=== PATIENT | male | born 1975 | race Caucasian/White ===

== ENCOUNTER 2019-02-23 07:40 | Day surgery (SDC) | payer BC ==
[2019-02-22 13:28] VITALS: BMI 31.5
[2019-02-23] MEDS ORDERED: LIDOCAINE HCL 1%, 10 MG/ML (20ML VIAL) ONE (09:03)
[2019-02-23] MEDS ORDERED: PROPOFOL 20 ML ONE ×2 (09:25)
[2019-02-23] MEDS ORDERED: fentaNYL CITRATE 250 MCG/5 ML VIAL ONE (09:25)
[2019-02-23] MEDS ORDERED: MIDAZOLAM HCL 2 MG/2 ML SINGLE DOSE VIAL ONE ×2 (09:26)
[2019-02-23] MEDS ORDERED: LIDOCAINE HCL/PF 2% SDV 5ML VIAL ONE (09:37)
[2019-02-23] MEDS ORDERED: ceFAZolin SODIUM 1 GM VIAL IVPB ONE (09:41)
[2019-02-23] MEDS ORDERED: ceFAZolin SODIUM 1 GM VIAL ONE (09:50)
[2019-02-23] MEDS ORDERED: LIDOCAINE HCL 1%, 10 MG/ML (20ML VIAL) INF ONE (10:26)
[2019-02-23] MEDS ORDERED: BUPIVACAINE HCL/PF 2.5 MG/ML - 30 ML VIAL IJ ONE (10:26)
[2019-02-23] MEDS ORDERED: BACITRACIN 50,000 UNITS VIAL TP ONE (10:26)
[2019-02-23] MEDS ORDERED: BUPIVACAINE HCL/PF 0.25% (2.5MG/ML) 10 ML VIAL ONE (10:30)
--- NOTE | 2019-02-23 10:58 | OP ---
Operative Note - Note: Operative Date: 02/23/19 Pre-Operative Diagnosis: atrophic rt. testis Operation: rt. testicular prosthesis Implants: rt. testes prosthesis Post-Operative Diagnosis: Same as Pre-op Surgeon: Aimee Calloway Anesthesia: General Specimens Removed: none Estimated Blood Loss (mls): 10 Drains, Volume Out (mls): 0 Blood Volume Replaced (mls): 0 Fluid Volume Replaced (mls): 0 Operative Report Dictated: Yes
[2019-02-23] MEDS ORDERED: ONDANSETRON 4 MG/2 ML VIAL IVPUSH PRN (11:15)
[2019-02-23] MEDS ORDERED: LACTATED RINGERS SOLUTION 1,000 ML IV SCH (11:15)
[2019-02-23] MEDS ORDERED: ONDANSETRON 4 MG/2 ML VIAL IVPUSH ONE (11:50)
[2019-02-23] MEDS ORDERED: ONDANSETRON 4 MG/2 ML VIAL ONE (11:51)
--- NOTE | 2019-02-23 11:51 | CONS ---
DATE OF CONSULTATION: DATE OF DICTATION: 02/23/2019 HISTORY: A 43-year-old male admitted for placement of a right testicular prosthesis. The patient has undergone bilateral inguinal hernia repairs in the past. He states that his right testicle has been diminishing in size. At present, he no longer feels a right testicle in the scrotum. Patient was advised to undergo an orchiectomy with placement of testicular prosthesis but patient adamantly refused. Possibility of carcinoma of the penis was explained fully and in detail to the patient. Again, the patient refused to have his right atrophic testicle removed. He does have history of high blood pressure. Also was diagnosed with a mild pancytopenia and hypertrophic cardiomyopathy. He is status post catheterization at [place] in 2005. He does have mild bilateral gynecomastia. He also underwent atrial fibrillation, ablation in June 2018. He had a ruptured right triceps tendon, which was surgically repaired. The patient denies any erectile dysfunction. He is and, by choice, has no children. MEDICATIONS: He is on metoprolol, Maxitrol, Suboxone, and Viagra. ALLERGIES: He states he is allergic to PENICILLIN. PHYSICAL EXAMINATION: General: Reveals a well-developed, adult male in no apparent distress. Abdomen: Soft. No CVA tenderness. Genitourinary: Groin reveals a normal, adult, circumcised male penis. Testes reveal a normal left testicle. Right testicle is not palpated. No hernias or hydroceles are elicited. Perineum has good sensation. Rectal: Revealed a 1+, nontender prostate. Extremities: Reveal full range of motion with no clubbing, cyanosis, or edema. IMPRESSION: At present is atrophic right testicle. PLAN: Right inguinal exploration and placement of a testicular prosthesis. Again, the indication for removing his right atrophic testicle was explained fully to patient, and the increased possibility of developing testicular cancer was also stressed. Patient refuses to have the atrophic right testicle removed. KOBE BUCHANAN M.D. JOSE [id number]
[2019-02-23] MEDS ORDERED: PROMETHAZINE HCL 25 MG/1 ML VIAL ONE (12:18)
[2019-02-23] MEDS ORDERED: PROMETHAZINE HCL 25 MG/1 ML VIAL IVPB ONE (12:30)
[2019-02-23] MEDS ORDERED: DEXAMETHASONE SOD PHOSPHATE 4 MG/1 ML VIAL ONE (13:01)
[2019-02-23] MEDS ORDERED: DEXAMETHASONE SOD PHOSPHATE 4 MG/1 ML VIAL IVPUSH ONE (13:05)
--- NOTE | 2019-02-23 14:09 | OP ---
DATE OF OPERATION: DATE OF DICTATION: 02/23/2019 PREOPERATIVE DIAGNOSIS: Right atrophic testicle. POSTOPERATIVE DIAGNOSIS: Right atrophic testicle. PROCEDURE: Insertion of testicular prosthesis. ANESTHESIA: General. DESCRIPTION OF PROCEDURE: Under above-stated anesthesia, patient is prepped and draped in the usual sterile manner. He is placed in the supine position. A right low inguinal incision was made. This was carried down through skin and subcutaneous tissue. External ring was isolated, and using blunt dissection, the spermatic cord with an atrophic testicle was found in the upper scrotum. Using blunt dissection, a pouch was made in the most dependent portion of the right hemiscrotum. The proper size prosthesis was then obtained and placed into the most dependent portion of the right hemiscrotum. This was pexy'd with 2 sutures of 2-0 Vicryl suture ligatures. No active bleeding was noted. The testicle appeared to lay in the lower portion of the right hemiscrotum. The size of the prosthesis was equal to the size of the normal left testicle. The wound was irrigated. Subcutaneous was closed with 3-0 Vicryl suture ligatures. Skin was closed with jenny. The wound was infiltrated with 0.25% Marcaine for long-term analgesia. Pressure dressing and a scrotal support were placed. The patient tolerated the procedure well. He returned to the recovery room in good condition. Weston [id number]
[2019-02-23 14:55] VITALS: BP 122/78; PULSE 74; TEMP 97.8
== END 2019-02-23 14:50 | disposition home or self-care (01) ==
LOC: JASU-SURG 07:40
PROVIDERS: ATTEND Urology
PROC: 0VU Male Reproductive System, Supplement (ICD-10-PCS; principal; 2019-02-23 09:00)
DX: N50.0 Atrophy of testis (principal)
CPT/HCPCS: 54660; L8699; 36415; 84460; 86803; 87340; 87389; 94760

== ENCOUNTER 2020-12-01 04:43 | Day surgery (SDC) | payer OTHER ==
[2020-11-30 12:14] VITALS: BMI 30.8
[2020-12-01] MEDS ORDERED: GENTAMICIN SO4 80 MG/2 ML VIAL ONE (10:03)
[2020-12-01] MEDS ORDERED: BUPIVACAINE HCL/PF 0.75% 10 ML VIAL ONE (10:03)
[2020-12-01] MEDS ORDERED: BUPIVACAINE HCL/PF 0.5% (5MG/ML) 10 ML VIAL ONE (11:19)
[2020-12-01] MEDS ORDERED: ceFAZolin 2 GRAM PREMIX BAG IVPB ONE ×2 (11:20→11:57)
[2020-12-01] MEDS ORDERED: BUPIVACAINE HCL/PF 0.5% (5MG/ML) 10 ML VIAL IJ ONE ×3 (11:21→12:01)
[2020-12-01] MEDS ORDERED: MIDAZOLAM HCL 2 MG/2 ML SINGLE DOSE VIAL ONE ×3 (11:28→11:40)
[2020-12-01] MEDS ORDERED: ONDANSETRON 4 MG/2 ML VIAL ONE (11:51)
[2020-12-01] MEDS ORDERED: DEXAMETHASONE SOD PHOSPHATE 4 MG/1 ML VIAL ONE (11:51)
[2020-12-01] MEDS ORDERED: PROPOFOL 20 ML ONE ×2 (11:52→11:55)
[2020-12-01] MEDS ORDERED: SUCCINYLCHOLINE CHLORIDE 200 MG/10 ML SYRINGE ONE (11:52)
[2020-12-01] MEDS ORDERED: ceFAZolin SODIUM 1 GM VIAL ONE (11:59)
[2020-12-01] MEDS ORDERED: oxyCODONE HCL 5 MG TABLET PO PRN (12:47)
[2020-12-01] MEDS ORDERED: ACETAMINOPHEN 325 MG TABLET (FP) PO PRN (12:47)
[2020-12-01] MEDS ORDERED: ONDANSETRON 4 MG/2 ML VIAL IVPUSH PRN (13:06)
[2020-12-01] MEDS ORDERED: LACTATED RINGERS SOLUTION 1,000 ML IV SCH (13:15)
[2020-12-01] MEDS ORDERED: oxyCODONE HCL 5 MG TABLET ONE (15:20)
[2020-12-01 15:49] VITALS: BP 110/57; PULSE 61; TEMP 97.7
== END 2020-12-01 16:20 | disposition home or self-care (01) ==
LOC: JASU-SURG 04:43
PROVIDERS: ATTEND Urology
PROC: 0VS90ZZ Reposition Right Testis, Open Approach (ICD-10-PCS; principal; 2020-12-01 11:00)
DX: T83.4 Mechanical complication of other prosthetic devices, implants and grafts of genital tract (principal)
CPT/HCPCS: 94760

== ENCOUNTER 2020-12-13 03:24 | Inpatient (IN) | payer OTHER ==
[2020-12-13] MEDS ORDERED: morphine CARPU-JECT 10 MG/1 ML DISP.SYRIN IVPUSH ONE (03:39)
[2020-12-13] MEDS ORDERED: morphine SULFATE 4 MG/ML VIAL ONE (03:42)
[2020-12-13] MEDS ORDERED: ONDANSETRON 4 MG/2 ML VIAL ONE ×2 (03:46→05:14)
[2020-12-13] MEDS ORDERED: ONDANSETRON 4 MG/2 ML VIAL IVPUSH ONE ×2 (03:46→05:13)
[2020-12-13] MEDS ORDERED: METOCLOPRAMIDE HCL INJECTION 10 MG/2 ML VIAL IVPB ONE (03:57)
[2020-12-13] MEDS ORDERED: METOCLOPRAMIDE HCL INJECTION 10 MG/2 ML VIAL ONE (04:01)
[2020-12-13 04:18] LABS: BASO % 0.2 % (0-2.0); EOS % 0.3 % (0-4.5); HEMATOCRIT 47.5 % (35.4-49); HEMOGLOBIN 16.2 GM/dL (11.7-16.9); LYMPH % 9.7 % (8-40); MCH 29.1 pg (25.7-33.7); MEAN CELL VOLUME 85.4 fl (80-96); NEUT % 80.8 % (42.8-82.8); PLATELET COUNT 160 10^3/uL (134-434); RBC 5.56 M/mm3 (4.00-5.60)
[2020-12-13 04:34] LABS: INR 1.2 (0.83-1.09); PROTHROMBIN TIME (PATIENT) 13.5 SEC (9.7-13.0)
[2020-12-13] MEDS ORDERED: ACETAMINOPHEN INJECTION 100 ML IVPB ONE (04:34)
[2020-12-13 04:36] LABS: ACTIVATED PTT 31.4 SECONDS (25.2-36.5)
[2020-12-13 04:38] LABS: ALBUMIN 4.1 g/dl (3.4-5.0); BLOOD UREA NITROGEN 28.5 mg/dL (7-18); CALCIUM 9.1 mg/dL (8.5-10.1)
[2020-12-13 04:42] LABS: CREATININE 1.1 mg/dL (0.55-1.3)
[2020-12-13 04:43] LABS: BILIRUBIN,TOTAL 0.8 mg/dL (0.2-1); TOT PROT 7.6 g/dl (6.4-8.2)
[2020-12-13] MEDS ORDERED: HYDROmorphone HCL CARPU-JECT 2 MG/1 ML DISP.SYRIN IVPUSH ONE (04:47)
[2020-12-13] MEDS ORDERED: ACETAMINOPHEN 1000 MG/100 ML VIAL IVPB ONE (04:47)
[2020-12-13] MEDS ORDERED: HYDROmorphone HCl 2 MG/ML VIAL ONE (05:14)
[2020-12-13] MEDS ORDERED: CEFTRIAXONE 1 GM in DEXTROSE 5%-WATER - 100 ML IVPB ONE (05:43)
[2020-12-13] MEDS ORDERED: DEXTROSE 5%-NORMAL SALINE 1,000 ML IV SCH ×3 (05:45→14:08)
[2020-12-13] MEDS ORDERED: HYDROmorphone HCl 2 MG/ML VIAL IM PRN (05:50)
[2020-12-13] MEDS ORDERED: VANCOMYCIN 1 GM in D5W (PRE-DOCKED) 1,000 MG/250 ML IVPB ONE (05:50)
[2020-12-13] MEDS ORDERED: ACETAMINOPHEN 1000 MG/100 ML VIAL IVPB PRN ×2 (05:51→14:08)
[2020-12-13] MEDS ORDERED: VANCOMYCIN 1 GRAM (PRE-DOCKED) 1,000 MG/250 ML BAG IVPB ONE (06:30)
[2020-12-13] MEDS ORDERED: CEFTRIAXONE 1 GM/50 ML BAG ONE (06:31)
[2020-12-13 08:00] LABS: URINE APPEARANCE CLEAR; URINE BILIRUBIN NEGATIVE (NEGATIVE); URINE COLOR YELLOW; URINE GLUCOSE (UA) NEGATIVE (NEGATIVE); URINE KETONE TRACE (NEGATIVE); URINE LEUK ESTERASE NEGATIVE (NEGATIVE); URINE NITRITE NEGATIVE (NEGATIVE); URINE PROTEIN NEGATIVE (NEGATIVE); URINE UROBILINOGEN 0.2 mg/dL (0.2-1.0)
[2020-12-13] MEDS ORDERED: HYDROmorphone HCl 2 MG/ML VIAL IVPB PRN (08:07)
[2020-12-13] MEDS ORDERED: QUEtiapine FUMARATE 25 MG TABLET ONE (08:44)
[2020-12-13] MEDS ORDERED: PANTOPRAZOLE SODIUM 40 MG VIAL ONE (08:44)
[2020-12-13] MEDS ORDERED: QUEtiapine FUMARATE 25 MG TABLET PO SCH (10:00)
[2020-12-13] MEDS ORDERED: PANTOPRAZOLE SODIUM 40 MG VIAL IVPUSH SCH (10:00)
[2020-12-13 10:59] VITALS: BMI 23.6
[2020-12-13] MEDS ORDERED: ONDANSETRON 4 MG/2 ML VIAL IVPUSH PRN ×3 (12:00→14:08)
[2020-12-13] MEDS ORDERED: PROPOFOL 20 ML ONE ×2 (12:21)
[2020-12-13] MEDS ORDERED: MIDAZOLAM HCL 2 MG/2 ML SINGLE DOSE VIAL ONE (12:21)
[2020-12-13] MEDS ORDERED: ePHEDrine SULFATE 50 MG/1 ML AMPULE ONE (12:50)
[2020-12-13] MEDS ORDERED: ceFAZolin SODIUM 1 GM VIAL IVPB ONE (12:56)
[2020-12-13] MEDS ORDERED: DEXTROSE 5%-WATER 100 ML IVPB ONE (17:20)
[2020-12-13] MEDS: CEFTRIAXONE 2 GM in DEXTROSE 5%-WATER 100 ML IVPB SCH (17:25)
[2020-12-13] MEDS ORDERED: CEFTRIAXONE 2 GM in DEXTROSE 5%-WATER 100 ML IVPB SCH (18:00)
[2020-12-13] MEDS ORDERED: POLYETHYLENE GLYCOL 3350 119 GM BTL PO PRN (21:00)
[2020-12-13] MEDS ORDERED: POLYETHYLENE GLYCOL (HEALTHYLAX) 3350 17 GM PACKET PO PRN (21:00)
[2020-12-13] MEDS: QUEtiapine FUMARATE 25 MG TABLET PO SCH (21:03)
[2020-12-14] MEDS ORDERED: DEXTROSE 5%-WATER 100 ML IVPB ONE (08:52)
[2020-12-14 09:02] VITALS: BP 114/69; PULSE 70; TEMP 98.3
[2020-12-14] MEDS: CEFTRIAXONE 2 GM in DEXTROSE 5%-WATER 100 ML IVPB SCH (09:15)
[2020-12-14] MEDS: QUEtiapine FUMARATE 25 MG TABLET PO SCH ×2 (09:16→10:41)
[2020-12-14] MEDS ORDERED: PANTOPRAZOLE SODIUM 40 MG VIAL IVPUSH SCH (10:00)
[2020-12-14] MEDS ORDERED: HYDROmorphone HCl 2 MG/ML VIAL IVPB ONE (11:03)
[2020-12-14 13:06] LABS: HEMATOCRIT 44.2 % (35.4-49); HEMOGLOBIN 14.9 GM/dL (11.7-16.9); MCH 29.3 pg (25.7-33.7); MCHC 33.8 g/dl (32.0-35.9); MEAN CELL VOLUME 86.6 fl (80-96); MEAN PLT VOLUME 7.2 fl (7.5-11.1); PLATELET COUNT 140 10^3/uL (134-434); RDW 14.7 % (11.9-15.9); WHITE BLOOD COUNT 6.8 K/mm3 (4.0-10.0)
[2020-12-14 13:23] LABS: CALCIUM 8.5 mg/dL (8.5-10.1)
[2020-12-14 13:24] LABS: BLOOD UREA NITROGEN 15.3 mg/dL (7-18)
[2020-12-14 13:27] LABS: CREATININE 1.1 mg/dL (0.55-1.3)
== END 2020-12-14 16:30 | disposition home or self-care (01) | DRG 921 ==
LOC: JER 03:24 → JERBED 03:44 → J5S 10:08
PROVIDERS: ADMIT Internal Medicine; ATTEND Internal Medicine
PROC: 0V9500Z Drainage of Scrotum with Drainage Device, Open Approach (ICD-10-PCS; principal; 2020-12-13 12:00)
DX: N99.841 Postprocedural hematoma of a genitourinary system organ or structure following other procedure (principal); S30.22XA Contusion of scrotum and testes, initial encounter; N50.819 Testicular pain, unspecified; Z87.891 Personal history of nicotine dependence; Z87.19 Personal history of other diseases of the digestive system; Z86.19 Personal history of other infectious and parasitic diseases; X58.XXXA Exposure to other specified factors, initial encounter; Y93.9 Activity, unspecified; Y92.9 Unspecified place or not applicable; Y99.9 Unspecified external cause status
CPT/HCPCS: 36415; 80048; 80053; 81003; 85025; 85027; 85610; 85730; 86850; 86900; 86901; 87070; 87086; 87186; 87205; 88304-TC; 93005; 93010; 94760; 99285-25; C9803; J0131; U0003; U0005

== ENCOUNTER 2021-05-06 12:10 | Emergency (ER) | payer OTHER ==
[2021-05-06 12:25] VITALS: BP 129/77; PULSE 78; TEMP 97.8; BMI 30.8
[2021-05-06] MEDS ORDERED: ACETAMINOPHEN 325 MG TABLET (FP) PO ONE (12:37)
== END 2021-05-06 13:25 | disposition home or self-care (01) ==
LOC: FER 12:10
DX: S49.92XA Unspecified injury of left shoulder and upper arm, initial encounter (principal); X50.0XXA Overexertion from strenuous movement or load, initial encounter
CPT/HCPCS: 73030-TC-LT-FY; 99283-25